=== PATIENT | male | born 1950 | race Asian ===

== ENCOUNTER → 2020-10-01 15:04 | Outpatient (CLI) | payer MEDICARE, SELFPAY ==
--- NOTE | 2020-10-01 | DI.CT.S_ITS ---
PROCEDURE: CT CHEST WO CON INDICATIONS: Abnormal findings on diagnostic imaging of other s TECHNIQUE: Noncontrast 5 mm thick sections acquired from the pulmonary apices to the posterior costophrenic angles. 1 mm lung window, 5 mm thick coronal and sagittal and 7 mm axial MIP reformats were then acquired. For radiation dose reduction, the following was used: automated exposure control, adjustment of mA and/or kV according to patient size. COMPARISON: [facility], CT LUNG CANCER SCREENING, 05/08/2020, 9:46. [facility], CT LUNG CANCER SCREENING, 05/07/2019, 9:51. [facility], CT LUNG CANCER SCREENING, 1949, 9:53. FINDINGS: Image quality: Excellent. Lungs and pleura: No acute air space opacities. No pleural effusions or pneumothorax. Central and peripheral airways are patent and normal in caliber. Nodules are present as follows: Right upper lobe: Two, 3 mm nodules in the lateral aspect series 3, image 71. These are clearly identified in the prior report. Left upper lobe: 3 mm lateral nodule series 3, image 63, 3 mm anterior subpleural nodule series 3, image 75: Similar described nodules are noted in the prior report. There are reticular opacities and nodularity within the medial aspect of the right lower lobe as well as posterior inferior left lower lobe. This was noted on prior report. However, without images, comparison of size is not able to be evaluated. Emphysematous changes are present. Mediastinum: Heart size is normal. No pericardial effusion. No mediastinal adenopathy by size criteria. Thoracic aorta and central pulmonary arteries are normal in size. Esophagus is normal in caliber. No hiatal hernia. Bones and chest wall: No suspicious bony lesions. No vertebral body compression fractures. No axillary or supraclavicular adenopathy by size criteria. Thyroid gland is unremarkable . Abdomen: Visualized upper abdominal solid organs and bowel loops appear normal in the absence of contrast. IMPRESSION: 1. Limited exam given lack of prior comparison images as described above. 2. Bilateral pulmonary nodules the largest measuring 3 mm, possibly present on prior exam in the left upper lobe. Right upper lobe nodules are considered indeterminate as being present on prior exam. If prior images become available, they will be reviewed and an addendum issued. Otherwise, given lack of direct comparison, six-month interval follow-up is recommended. Dictated by: Connie Senior M.D. on 10/09/2020 at 10:46 Approved by: Connie Senior M.D. on 10/09/2020 at 10:57
== END ==
PROVIDERS: Referring Provider Internal Medicine Pulmonary Disease; Visit Provider Internal Medicine Pulmonary Disease
DX: R93.89 Abnormal findings on diagnostic imaging of other specified body structures (principal); R91.8 Other nonspecific abnormal finding of lung field
CPT/HCPCS: 71250